=== PATIENT | female | born 1990 | race Caucasian/White ===

== ENCOUNTER 2017-04-11 19:35 | Emergency (ER) | payer BC ==
[2017-04-11 20:13] LABS: Hematocrit 44.6 % (37.0-47.0); Hemoglobin 15.5 gm/dL (12.5-16.0); Mean Corpuscular Hemoglobin 29.2 pg (27-31); Mean Corpuscular Hgb Conc 34.8 g/dl (32-36); Neutrophil # 8.1 K/mm3 (1.3-6.0); Neutrophil % 79.2 % (42-75.0); Platelet Count 315 K/mm3 (150-450); Red Blood Count 5.31 M/mm3 (4.2-5.4); White Blood Count 10.2 K/mm3 (4.0-10.5)
[2017-04-11 20:25] LABS: ALT 24 U/L (19-67); AST 16 U/L (0-48); Albumin * 4.7 gm/dl (3.4-5.0); Alkaline Phosphatase * 52 U/L (50-170); Anion Gap 16.8 mmol/L (6.8-13.8); BUN/Creatinine Ratio 5.7 (9.0-21.6); Bilirubin, Total 0.7 mg/dL (0.0-1.1); Blood Urea Nitrogen 6 mg/dL (3-23); Ca. Corrected For Albumin 8.4 mg/dL (8.4-10.2); Calcium * 9.3 mg/dL (7.9-10.9); Carbon Dioxide 24.6 mmol/L (24-32.6); Chloride 106 mmol/L (97-106); Glucose * 88 mg/dL (70-110); Potassium 3.4 mmol/L (3.4-4.6); Salicylate Less than 2.8 mg/dL (2.8-20.0); Sodium 144 mmol/L (132-142); Total Protein 8.3 gm/dL (6.2-8.2)
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
[2017-04-11 20:42] LABS: Urine Bilirubin Negative (NEGATIVE); Urine Blood Negative /ul (NEGATIVE); Urine Ketone Negative (NEGATIVE); Urine Nitrite Negative (NEGATIVE); Urine Protein Negative (NEGATIVE); Urine Specific Gravity <=1.005 SP.GR. (1.005-1.010); Urine Urobilinogen Normal (NORMAL)
[2017-04-11 20:52] LABS: Urine Appearance Clear; Urine Bacteria None Seen; Urine Color Pale Yellow; Urine RBC None Seen /hpf (0-5); Urine WBC None Seen /hpf (0-5)
[2017-04-11 21:04] LABS: Cocaine Ur Negative (NEGATIVE); Urine Barbiturate Negative (NEGATIVE); Urine Benzodiazepines Negative (NEGATIVE); Urine Opiates Negative (NEGATIVE); Urine PCP Negative (NEGATIVE); Urine THC Negative (NEGATIVE)
[2017-04-11] MEDS ORDERED: ONDANSETRON 4 MG TAB.RAPDIS PO ONE (21:54)
[2017-04-11] MEDS ORDERED: ONDANSETRON 4 MG TAB.RAPDIS ONE (21:55)
[2017-04-11 23:59] LABS: Acetaminophen * 37.5 mcg/mL (10.0-30.0)
[2017-04-12 01:15] VITALS: BP 116/70
== END 2017-04-12 01:20 ==
LOC: ER 19:35
DX: T50.904A Poisoning by unspecified drugs, medicaments and biological substances, undetermined, initial encounter (principal); F10.929 Alcohol use, unspecified with intoxication, unspecified; Z02.89 Encounter for other administrative examinations
CPT/HCPCS: 36415; 80053; 80307; 81001; 84703; 85025; 93005; 94760; 99283; G0480; G0481